=== PATIENT | male | born 1970 | race Two or more races ===

== ENCOUNTER 2023-09-30 14:41 | Emergency (ER) | payer MEDICAID ==
[2023-09-30] MEDS ORDERED: ALBUTEROL SULF 2.5 MG/0.5ML(0.5%) NEB SOLN NEB ONE (15:15)
[2023-09-30] MEDS ORDERED: ONDANSETRON ODT 4 MG TAB PO ONE (15:30)
[2023-09-30] MEDS ORDERED: IPRATROPIUM BROM 0.5 MG/2.5ML INH SOL NEB ONE (15:30)
[2023-09-30 15:54] LABS: Basophils # (auto) 0 10 ^3/uL (0-0.2); Basophils % (auto) 0.6 % (0.0-2.0); Eosinophils # (auto) 0 10 ^3/uL (0-0.8); Eosinophils % (auto) 0.5 % (0.0-7.0); Hemoglobin 15.2 g/dL (13.5-17.5); Lymphocytes # (auto) 1.6 10 ^3/uL (0.4-5.4); Mean Corpuscular Hgb Conc. 34.5 g/dL (32.0-36.0); Mean Corpuscular Volume 86.8 fL (80.0-100.0); Monocytes # (auto) 0.5 10 ^3/uL (0-1.3); Monocytes % (auto) 13.2 % (0.0-12.0); Neutrophils # (auto) 1.6 10 ^3/uL (1.6-8.6); Neutrophils % (auto) 41.7 % (37.0-80.0); Red Blood Cells 5.08 10^6/uL (4.5-5.90); White Blood Cell 3.7 10^3/uL (4.4-10.8)
[2023-09-30 16:14] LABS: Alanine Aminotransferase 14 U/L (7-40); Albumin 4.1 g/dL (3.2-4.8); Alkaline Phosphatase 66 U/L (46-116); Anion Gap 7 (5-15); Aspartate Aminotransferase 29 U/L (13-40); BUN/Creatinine Ratio 10.7 (10.0-20.0); Blood Urea Nitrogen 9 mg/dL (9-23); Calcium 8.4 mg/dL (8.7-10.4); Carbon Dioxide 25 mmol/L (20-30); Chloride 103 mmol/L (98-107); Glucose 129 mg/dL (74-106); Lipase 49 U/L (12-53); Potassium 3.7 mmol/L (3.5-5.1); Sodium 135 mmol/L (136-145)
[2023-09-30 16:15] LABS: Bilirubin, Total 0.3 mg/dL (0.2-1.0); Total Protein 6.9 g/dL (5.7-8.2)
[2023-09-30] MEDS ORDERED: ONDANSETRON ODT 4 MG TAB ONE (18:26)
[2023-09-30 19:35] LABS: Urine Bacteria NONE SEEN /hpf (None Seen); Urine Blood TRACE /uL (Negative); Urine Clarity Clear (Clear); Urine Color Yellow (Yellow); Urine Mucus FEW (None Seen); Urine Protein, UAD 1+ (Negative); Urine Specific Gravity 1.027 (1.001-1.035); Urine Urobilinogen Normal (Negative); Urine WBC 2 /hpf (0 - 3)
[2023-09-30 19:38] LABS: Amphetamine Screen, Urine Neg (NEGATIVE); Barbiturate Scree,Urine Neg (NEGATIVE); Benzodiazephine Screen, Urine Neg (NEGATIVE); Cocaine Screen, Urine Neg (NEGATIVE); Opiate Scree,Urine Neg (NEGATIVE); Phencyclidine Screen, Urine Neg (NEGATIVE)
[2023-09-30 19:39] LABS: Cannabinoid Screen, Urine Neg (NEGATIVE)
[2023-09-30 21:21] LABS: Rapid Influenza A Negative (Negative); Rapid Influenza B Negative (Negative)
[2023-09-30 21:23] LABS: COVID19 ANTIGEN SOFIA FIA NEGATIVE (NEGATIVE)
[2023-09-30] MEDS ORDERED: LORA10CA PO (22:06)
[2023-09-30] MEDS ORDERED: BENZ100C97 PO (22:06)
== END 2023-09-30 22:26 | disposition home or self-care (01) ==
LOC: ER 14:41
DX: R05.9 Cough, unspecified (principal); R06.02 Shortness of breath; Z20.822 Contact with and (suspected) exposure to COVID-19; Z79.899 Other long term (current) drug therapy
CPT/HCPCS: 36415; 71045; 80053; 80307; 81001; 83690; 84484; 85025; 87426; 87804; 94640; 99284; Q0162